=== PATIENT | female | born 1975 | race Caucasian/White ===

== ENCOUNTER 2016-12-17 21:31 | Emergency (ER) | payer OTHER ==
[~2016-12-17] VITALS: Ht 167.6 cm; Wt 75.0 kg
[2016-12-17 21:35] VITALS: BP 123/84; PULSE 80; RESP 16; O2SAT 100
--- NOTE | 2016-12-17 22:18 | ED.REPORT ---
HPI-Chest Pain 40 and Over Date of Service December 17, 2016 ED Provider: Dr. Derek Bell M.D. A 41 year old female with history of SLE and a close family history of Factor V Leiden presents to the ED with right lower chest pain onset four days ago. The pain is exacerbated with movement and eating. It began in the right thoracic back then spread under her left breast. The skin in the affected area is sensitive and painful. The patient also reports fatigue, left posterior calf pain, and one episode of black, tarry stool just prior to arrival. She denies nausea, vomiting, cough, shortness of breath, rash, itchiness, or other symptoms. Nursing Notes Stated Complaint: CHEST PAIN Chief Complaint: Chest Pain Nursing Notes Reviewed: Yes Allergies: Coded Allergies: No Known Allergies (Unverified , 12/17/16) Scheduled Famotidine (Pepcid) 20 Mg Tablet 20 MG PO BID Indomethacin (Indomethacin) 50 Mg Capsule 50 MG PO TID General Time Seen by MD: 22:18 Chief Complaint Chest pain Hx Obtained From: Patient Arrived By: Walk-in Sudden in Onset?: No Onset Occurred: 4 days ago Symptom Duration: Since onset Location: : Back (Right thoracic): Chest right Quality: Painful Severity: Current: Moderate Severity: Maximum: Moderate Pertinent Negative: Relieved by nothing Recent Healthcare: No recent doctor visit Past Medical History Past Medical History Systemic lupus erythematosus Past Surgical History None reported Family History Factor V Leiden Smoking History Unknown if Ever Smoker Ambulatory Status Independent Review of Systems Constitutional: Reports: Fatigue Respiratory: Denies: Non-productive cough, Shortness of breath Cardiovascular: Reports: Chest pain (Right lower) GI: Reports: Melena, Denies: Nausea, Vomiting Musculoskeletal: Reports: Back pain (Right thoracic), Extremity pain (Left posterior calf) Skin: Denies Itching, Denies Rash Complete sys rev & neg: except as marked. Physical Exam Initial Vital Signs Vital Signs (First) Date Time Temp Pulse Resp B/P Pulse Ox O2 Delivery O2 Flow Rate FiO2 12/17/16 21:35 36.2 80 16 123/84 100 Room Air Initial VS: Reviewed Head / Eyes: Atraumatic, Normocephalic ENT: Conjunctiva normal, No scleral icterus Neck: Supple, Full range of motion Neurologic: Alert, Oriented, Nonfocal Psychiatric: Mood/affect normal, Behavior normal, Normal thought content General/Constitutional: Awake, Alert Respiratory / Chest: Breath sounds NL, Breath sounds = bilat, No respiratory distress Chest Wall / Ribs: Positive: Chest tender lower R (Under breast) Cardiovascular: Heart rate NL, Regular rhythm, Heart sounds NL Abdomen: Atraumatic, Soft Tenderness/Guarding/Rebound: Positive: Tender RUQ... Back: Atraumatic Flank / Spine / Paraspinal: Positive: Flank tender R Lower Extremity / Pelvis / MS: Inspection NL, Non-tender, No edema No cords Skin: No rash, Warm, Dry Skin tender right flank and under right breast Interpretation & Diagnostics URINE : Negative URINE DIPSTICK: Bedside Urine Specific [place] * 1.010 Bedside Urine pH * 7 Bedside Urine Leukocyte Esterase * Trace Bedside Urine Nitrite * Negative Bedside Urine Protein * Negative Bedside Urine Glucose * Normal Bedside Urine Ketones * Negative Bedside Urine Urobilinogen * Normal Bedside Urine Bilirubin * Negative Bedside Urine Occult Blood * ~50 Vasquez/ml Urine to Lab * Yes Lab Results Interpretation Result Diagram: 12/17/16222912/17/162229 Test 12/17/16 21:58 12/17/16 22:30 12/18/16 01:40 Hold Urine Received (Received) White Blood Count 7.8th/mm3 (3.8-10.1) Red Blood Count 4.51mil/mm3 (3.90-5.20) Hemoglobin 13.7g/dL (12.0-15.6) Hematocrit 40.3% (35.0-46.0) Mean Corpuscular Volume 89.4fL (81-100) Mean Corpuscular Hemoglobin 30.4pg (27.0-35.0) Mean Corpuscular Hemoglobin Concent 34.0% (32.0-37.0) Red Cell Distribution Width 12.3% (12.3-15.4) Platelet Count 227bil/L (150-400) Neutrophils (%) (Auto) 58.9% (40-74) Lymphocytes (%) (Auto) 30.8% (14-46) Monocytes (%) (Auto) 8.6% (4-12) Eosinophils (%) (Auto) 1.3% (0-5) Basophils (%) (Auto) 0.3% (0-3) Prothrombin Time 9.9sec (8.1-12.5) Prothromb Time International Ratio 0.93ratio Activated Partial Thromboplast Time 27.4sec (22.8-33.0) D-Dimer < 0.50mg/L FEU (<0.50) Sodium Level 137mEq/L (134-144) Potassium Level 3.9mEq/L (3.5-5.2) Chloride Level 97mEq/L (97-108) Carbon Dioxide Level 24mmol/L (18-29) Blood Urea Nitrogen 19mg/dL (6-24) Creatinine 0.56mg/dL (0.57-1.00) Estimat Glomerular Filtration Rate 172mL/min (>59) Glucose Level 95mg/dL (60-99) Calcium Level 10.2mg/dL (8.5-10.1) Magnesium Level 2.0mg/dL (1.6-2.6) Total Bilirubin 0.2mg/dL (0.0-1.2) Aspartate Amino Transf (AST/SGOT) 19U/L (0-50) Alanine Aminotransferase (ALT/SGPT) 11U/L (0-32) Alkaline Phosphatase 58U/L (25-150) Troponin T 0.010ug/L (0.0-0.011) Pro-B-Type Natriuretic Peptide 9.05pg/mL (0-130) Total Protein 8.2g/dL (6.4-8.4) Albumin 4.8g/dL (3.4-5.0) Lipase 23U/L (13-60) Hold Huff Top Tube Received (Received) Erythrocyte Sedimentation Rate 10mm/hr (0-32) ECG Interpretation ECG Interpretation: Sinus rhythm rate 79 Incomplete right bundle branch block Time: 21:47 Interpreted by: ED physician X-Ray Chest Interpretation Chest Xray Interpretation: Normal chest View: AP & lat Interpretation / Wet Read by: Wet read ED physician CT Chest Interpretation CONCLUSION: No evidence of pulmonary embolism or thoracic aortic dissection. Lungs are clear. Report transmitted to the ED by Abhilash Andrade M.D. at 12/18/2016 - 12:25:28 AM PDT Study type: CT pulm angiogram Interpretation / Wet Read by: Interpret - Radiologist Re-Eval/Medical Decision Med Decision/Clinical Course 5-year-old with reported prior lupus, not currently on therapy, and diagnosis and question. She also has multiple relatives with factor V Leiden, and may well be a factor V Leiden case herself. She presents with pleuritic pain of concern for pulmonary emboli, though her CT scan is negative for embolus. She is not involved with rheumatology at this point, and if she indeed has lupus, this is obviously necessary and she was advised of this. A screen for A and a rheumatoid factor a reflex and a positive, and sedimentation rate were done sedimentation rate is only ten. Source of her pain is clearly not cardiac. Regular dosing was 3 times a day indomethacin, Pepcid twice a day as long as indomethacin is being used, and plan for follow-up with local physician and with rheumatology. Time of Eval: 23:56 Patient Status: Condition improved Re-Evaluation/Progress Note: Discussed with patient lab and x-ray results with plan for CT. She agrees with plan for care. Time of Eval: 01:18 Patient Status: Condition improved Re-Evaluation/Progress Note: Discussed with patient CT, x-ray, and lab results, diagnosis, and plan for discharge. Follow-up and return to the ER instructions given. Patient agrees with plan for care and all questions were addressed. Counseled Regarding: Diagnosis, Lab results, Need for follow-up, When/why to return to ED Discharge & Departure Shift Change Sign-Out Response to Therapy: Improved Primary Impression: Non-cardiac chest pain Additional Impression: Pleurisy Disposition: Home Discharge Condition All VS Reviewed: Yes Condition: Improved Patient Instructions: Pleurisy (ED) Additional Instructions: We cannot totally exclude gallstones at this hour of the day. The follow-up test would be a fasting ultrasound of the right upper quadrant, which can be scheduled through radiology. Call them in the morning to arrange the follow-up appointment. Followup also with local physician. You can follow-up at the [facility] residency clinic initially. Follow-up with rheumatology. If you do in fact have lupus, it is essential that you have specialty follow-up. Call that office tomorrow for their earliest follow-up appointment. Expect that will be in 2-3 months. 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 Begin indomethacin three times daily, up to four times daily if needed for pain. Take it with food always, and take Pepcid twice daily as long as your are on the indomethacin. Referrals: [facility] Res[facility] Carlos Harris MD Attestation Portions of this note were transcribed by Ana Silva. I, Dr. Bell, personally performed the history, physical exam, and medical decision-making; I reviewed and confirmed the accuracy of the information in the transcribed note. Signed by: Severiano Mackey, 12/18/2016, 03:40 copies to: [facility]; Carlos Harris MD, Christopher W MD December 17, 2016 22:18 ANA SILVA December 17, 2016 22:25
[2016-12-17] MEDS ORDERED: Pantoprazole 4 mg/mL 10 mL Inj IVPUSH ONE (22:25)
[2016-12-17 22:43] LABS: BASOPHILS % (AUTO) 0.3 % (0-3); EOSINOPHILS % (AUTO) 1.3 % (0-5); MONOCYTES % (AUTO) 8.6 % (4-12); Mean Corpuscular Hemoglobin 30.4 pg (27.0-35.0); Mean Corpuscular Volume 89.4 fL (81-100); NEUTROPHILS % (AUTO) 58.9 % (40-74); Platelet Count 227 bil/L (150-400)
[2016-12-17 22:58] LABS: D-Dimer < 0.50 mg/L FEU (<0.50); INR 0.93 ratio
[2016-12-17 23:00] LABS: TROPONIN T 0.01 ug/L (0.0-0.011)
[2016-12-18 01:16] VITALS: BP 106/51; PULSE 70; RESP 17; O2SAT 97
[2016-12-18] MEDS ORDERED: FAMO20T PO (01:34)
[2016-12-18] MEDS ORDERED: INDO50CA PO (01:34)
[2016-12-18 01:47] VITALS: BP 116/56; PULSE 72; RESP 16; O2SAT 99
--- NOTE | 2016-12-18 07:31 | DRSVH ---
PROCEDURE: CT ANGIO CHEST PULMONARY EMBOLISM ([id number]) INDICATIONS: factor V Leiden, chest pain TECHNIQUE: After the administration of intravenous contrast, 2 mm thick sections acquired from the pulmonary api eleuterio to the posterior costophrenic angles. 3-dimensional maximum intensity projection (MIP) coronal a nd sagittal reformats were then acquired through the thorax. For radiation dose reduction, the follo wing was used: automated exposure control, adjustment of mA and/or kV according to patient size. COMPARISON: None. FINDINGS: Image quality: Excellent. Pulmonary arteries: Pulmonary arteries are normal in size, and demonstrate no intraluminal filling d efects to suggest central pulmonary embolism. Lungs and pleura: Airways are clear. There is a 5 mm left lower lobe pulmonary nodule (se 5 im 42). T here is a 4 mm right middle lobe nodule (im 32).. Mediastinum: Heart size is normal, without pericardial effusion. No mediastinal or hilar adenopathy . Thoracic aorta is normal in caliber and enhancement. Esophagus is normal in caliber, without hiat al hernia. Bones and chest wall: No suspicious bony lesions. Ribs and thoracic spine appear intact throughout. Thyroid gland is normal. No axillary or supraclavicular adenopathy. Abdomen: Hypodensities in the liver too small for definitive evaluation likely represent simple cysts or hemangiomas.. IMPRESSION: 1. No acute central pulmonary emboli. 2. Bilateral pulmonary nodules measuring up to 5 mm. No comparison studies available. If patient is l ow risk (no history of smoking for example) recommend followup chest CT in 12 months as per Braulio criteria. 3. There are no urgent discrepancies with the pulmonary report. Dictated by: Jon Deluna M.D. on 12/18/2016 at 7:18 Approved by: Jon Deluna M.D. on 12/18/2016 at 7:24
--- NOTE | 2016-12-18 08:17 | DRSVH ---
PROCEDURE: X-RAY CHEST, TWO VIEWS ([id number]) INDICATIONS: pain TECHNIQUE: 2 views of the chest were acquired. COMPARISON: None. FINDINGS: Surgical changes and devices: None. Lungs and pleura: No pleural effusions or pneumothorax. Lungs are clear. Mediastinum: Mediastinal contours are normal. Heart size is normal. Bones and chest wall: No suspicious bony abnormalities. Soft tissues appear unremarkable. IMPRESSION: No acute disease Dictated by: Louis Eason M.D. on 12/18/2016 at 8:09 Approved by: Louis Eason M.D. on 12/18/2016 at 8:16
== END 2016-12-18 01:22 | disposition home or self-care (01) ==
LOC: SED 21:31
DX: R07.89 Other chest pain (principal); R09.1 Pleurisy; M54.6 Pain in thoracic spine; M79.605 Pain in left leg; R53.83 Other fatigue; M32.9 Systemic lupus erythematosus, unspecified
CPT/HCPCS: 36415; 71020; 71275; 80053; 81025; 83690; 83735; 83880; 84484; 85025; 85378; 85610; 85651; 85730; 86038; 86430; 93005; 96374; 96375; 99285; J1885; Q9967